=== PATIENT | female | born 2005 | race Caucasian/White ===

== ENCOUNTER 2023-12-31 03:28 | Emergency (ER) | payer BC ==
[2023-12-31] MEDS ORDERED: predniSONE 20 MG Tab PO ONE (03:29)
[2023-12-31] MEDS: Triamcinolone Acetonide 40 MG/ML 1 ML SDV IM ONE (04:10)
[2023-12-31] MEDS: diphenhydrAMINE 50 MG/ML SDV IM ONE (04:11)
== END 2023-12-31 04:17 | disposition home or self-care (01) ==
LOC: FB.ED 03:28
DX: L50.9 Urticaria, unspecified (principal)
CPT/HCPCS: 96372; 99283; J1200; J3301; J7512